=== PATIENT | male | born 1985 | race Caucasian/White ===

== ENCOUNTER 2022-08-29 01:55 | Emergency (ER) | payer OTHER ==
[~2022-08-29] VITALS: Ht 162.6 cm; Wt 72.0 kg
[2022-08-29 05:13] VITALS: BP 157/96
== END 2022-08-29 05:21 | disposition home or self-care (01) ==
LOC: EMS 02:04
DX: I10 Essential (primary) hypertension; Z90.49 Acquired absence of other specified parts of digestive tract
CPT/HCPCS: 74176; 99284; Z7502